=== PATIENT | male | born 1985 | race Caucasian/White ===

== ENCOUNTER → 2020-06-23 08:52 | Outpatient (BNVA) | payer OTHER, SELFPAY | PROVIDERS: Family Provider Family Medicine; Visit Provider Psychiatry & Neurology Psychiatry | DX: Z03.89 Encounter for observation for other suspected diseases and conditions ruled out (principal); Z79.899 Other long term (current) drug therapy; F33.1 Major depressive disorder, recurrent, moderate | CPT/HCPCS: 80048; 80061; 83036; 84443; 85025 ==

== ENCOUNTER 2020-11-15 06:39 | Emergency (ER) | payer SELFPAY ==
--- NOTE | 2020-11-15 06:40 | ED_ITS ---
HPI - Back Pain/Injury General: Chief Complaint: Back Pain/Injury Stated Complaint: neck and back pain, left shoulder pain Time Seen by Provider: 11/15/20 06:40 History of Present Illness: HPI Narrative: 35-year-old male presents to the emergency room with complaints of neck pain. Is been ongoing for several weeks. He has tried multiple different things including [id number] medications previous prescriptions and patient care assistant. He has developed significant left arm radiculopathy cervical nerve dermatomes. He gives a near exact description of the C6-7 nerve root impingement on history, by description of the areas affected with pain. He has had multiple episodes of this in the past which she is treated with prednisone and anti-inflammatories and muscle relaxers they have all resolved since he has had a period of time where he is not had any problems. This seemed to be exacerbated by recent heavy labor at home. He has had back problems in the past as well with right leg radiculopathy that resolved after he was treated recently with a short course of steroids. MD elicited complaint: back pain Onset (ago): week(s) Timing: constant Severity: severe Similar Symptoms Previously: Yes Location: lumbar spine Exacerbating factors: sitting upright, walking and lifting Relieving factors: none Associated symptoms: Deny abdominal pain, arthralgias, chills, change in bowel habits, difficulty walking, dysuria, fatigue, fecal incontinence, fever(s), hematuria, myalgias, nausea, numbness, syncope, tingling/numbness/burning, urinary frequency, urinary urgency, vomiting or weakness Treatments prior to arrival: NSAIDS, acetaminophen, prescription analgesics and other medications Review of Systems Const: Denies: fever(s), chills or fatigue ENMT: Denies: throat pain, ear or mastoid pain, nasal discharge or nasal congestion Card: Denies: syncope Resp: Denies: dyspnea, productive cough or non-productive cough GI: Denies: abdominal pain, nausea, vomiting, fecal incontinence or change in bowel habits : Denies: dysuria, urinary urgency or hematuria Skin/Breast: Denies: rash or pruritus Neuro: Denies: difficulty walking PFSH ED PFSH: Medical History TOD (generalized anxiety disorder) MDD (major depressive disorder) Social History Current gender identity: Male Physical Exam Const: COMMON NORMALS: no acute distress GENERAL APPEARANCE: cooperative and comfortable ORIENTATION/CONSCIOUSNESS: Yes awake, Yes oriented to person, Yes oriented to place and Yes oriented to time HENMT: COMMON NORMALS: normocephalic, atraumatic, hearing grossly normal bilaterally and external ears normal HEAD & SCALP: normocephalic and atraumatic EXTERNAL EAR: Yes external ears normal Neck/C-Spine: COMMON NORMALS: no JVD Resp: COMMON NORMALS: normal respiratory effort, No retractions, No use of accessory muscles and clear to auscultation bilaterally AUSCULTATION: clear to auscultation bilaterally Cardio: COMMON NORMALS: no JVD, regular rate, regular rhythm and No murmurs present (Cardio) RATE: regular rate RHYTHM: regular rhythm Extremity: COMMON NORMALS: normal to inspection, capillary refill normal, no clubbing, cyanosis or edema, no calf tenderness and no pedal edema Neuro: SENSORIUM/ORIENTATION: Yes oriented to person, Yes oriented to place and Yes oriented to time DEEP TENDON REFLEXES: Right patellar reflex intens ity grade: 0 and Left patellar reflex intensity grade: 2+ OTHER: Dorsum plantar flexion in the right foot is 5 of 5 has total loss of patellar tendon reflex on the right side. No evidence of sensation alteration at this time Patient has C6-7 radiculopathy. Diminished sensation in the outer portion of the left arm as well as on the thumb index and middle finger in the left hand. Brachial radialis triceps and biceps tendon reflexes difficult to elicit. Skin: COMMON NORMALS: no rashes or lesions noted GENERAL SKIN EXAM: no rashes or lesions noted Course Vital Signs: Vital signs: Vital Signs Temperature 97.7 F 11/15/20 07:05 Pulse Rate 62 11/15/20 07:52 Respiratory Rate 18 11/15/20 07:52 Blood Pressure 135/110 11/15/20 07:52 Pulse Oximetry 98 11/15/20 07:52 MDM - Back Pain/Injury MDM Narrative: Medical decision making narrative: Based on exam believe patient has an L4 nerve root irritation which seems to be stable at this time and he has very little pain from it. His cervical radiculopathy is much more impressive with a very clear dermatomal pattern suggestive of C6-7. Patient is having a difficult time functioning at this time and is having to keep his left arm above his head for the pain to be tolerable to sit in the exam room. Unfortunately he does not have insurance. Discussed with him at some point he will likely need an MRI and evaluation by neurosurgery or a spine surgeon. He does not have insurance at this time and is going to pursue that at a later date we will treat him medically at this point for significant worsening return Discharge Plan Discharge Patient Disposition: Home Clinical Impression: Lumbar radiculopathy, Cervical radiculopathy at C6, Cervical radiculopathy at C7 Condition: Stable Prescriptions: New pregabalin 75 mg capsule 75 mg PO BID Qty: 60 RF: 2 tizanidine 4 mg capsule 4 mg PO Q6H PRN (Reason: muscle spasticity) Qty: 60 RF: 1 diclofenac sodium 75 mg tablet,delayed release (DR/EC) 75 mg PO Q12H PRN (Reason: pain) Qty: 60 RF: 1 hydrocodone-acetaminophen 7.5-325 mg tablet 1 tab PO Q4H PRN (Reason: pain) Qty: 30 RF: 0 prednisone 20 mg tablet 20 mg PO BID 7 Days Qty: 15 RF: 0 No Action bupropion HCl 150 mg tablet extended release 24 hr 150 mg PO QAM 30 Days Qty: 30 RF: 3 escitalopram oxalate 20 mg tablet 20 mg PO DAILY 30 Days Qty: 30 RF: 3 Discharge Orders: Discharge ED (Routine); Ordered 11/15/20 Ordered By: Jeffrey Golden Referrals: Jeffrey Golden, DO [Emergency Provider] - Discharge Diet: Usual diet Discharge Activity: Increase activity as tolerated Patient Instructions: Opioid Safety Coding Level of Care Code ED Charge Preparation Technician for Chg Fwd Exam Comprehensive
[2020-11-15 07:05] VITALS: BP 141/102; PULSE 84; RESP 17; TEMP 36.5; O2SAT 97; BMI 27.8
[2020-11-15 07:27] VITALS: RESP 18
[2020-11-15] MEDS: morphine 4 mg/mL SDV 1 mL 6 MG IM (07:27)
[2020-11-15] MEDS: dexamethasone 10 mg/mL INJ IM (07:27)
[2020-11-15] MEDS: ketorolac 30 mg/mL INJ 60 MG IM (07:30)
[2020-11-15] MEDS: orphenadrine 30 mg/mL Inj 2 mL 60 MG IM (07:30)
[2020-11-15 07:52] VITALS: BP 135/110; PULSE 62; RESP 18; O2SAT 98
== END 2020-11-15 07:53 | disposition home or self-care (01) ==
LOC: ER 06:46
PROVIDERS: Emergency Provider Family Medicine
DX: M54.16 Radiculopathy, lumbar region (principal); M54.12 Radiculopathy, cervical region
CPT/HCPCS: 96372; 99283; J1100; J1885; J2270; J2360

== ENCOUNTER 2020-12-24 13:08 | Emergency (ER) | payer SELFPAY ==
[2020-12-24 13:14] VITALS: BP 119/82; PULSE 56; RESP 18; TEMP 36.8; O2SAT 99; BMI 27.8
--- NOTE | 2020-12-24 13:31 | XRR_ITS ---
PROCEDURE INFORMATION: Exam: XR Chest Exam date and time: 12/24/2020 1:31 PM Age: 35 years old Clinical indication: Cough and dyspnea; Additional info: Dyspnea/cough TECHNIQUE: Imaging protocol: XR of the chest. Views: 1 view. COMPARISON: No relevant prior studies available. FINDINGS: Lungs: Unremarkable. No consolidation. Pleural spaces: Unremarkable. No pleural effusion. No pneumothorax. Heart/Mediastinum: Unremarkable. No cardiomegaly. Bones/joints: Unremarkable. XR/XR chest 1V portable [id number] IMPRESSION: Negative for infiltrate
--- NOTE | 2020-12-24 14:36 | CTR_ITS ---
PROCEDURE INFORMATION: Exam: CTA Chest With Contrast Exam date and time: 12/24/2020 2:36 PM Age: 35 years old Clinical indication: Shortness of breath; Patient HX: SOB; Additional info: Shortness of breath w chest pain TECHNIQUE: Imaging protocol: Computed tomographic angiography of the chest with contrast. 3D rendering (Not supervised by radiologist): MIP and/or 3D reconstructed images were created by the technologist. Radiation optimization: All CT scans at this facility use at least one of these dose optimization techniques: automated exposure control; mA and/or kV adjustment per patient size (includes targeted exams where dose is matched to clinical indication); or iterative reconstruction. Contrast material: OMNI 350; Contrast volume: 95 ml; Contrast route: INTRAVENOUS (IV); COMPARISON: CR (CHEST, ) 12/24/2020 3:13 PM RADIATION DOSE METRICS: Total DLP (mGy-cm): 623.91 FINDINGS: Pulmonary arteries: Normal. No pulmonary emboli. Aorta: Unremarkable. No aortic aneurysm. No aortic dissection. Lungs: Unremarkable. No consolidation. No masses. Pleural spaces: Unremarkable. No pneumothorax. No pleural effusion. Heart: Unremarkable. No cardiomegaly. No pericardial effusion. Lymph nodes: Unremarkable. No enlarged lymph nodes. Bones/joints: Unremarkable. No acute fracture. Soft tissues: Unremarkable. CT/CT angio chest PE protcl [id number] IMPRESSION: Negative for pulmonary embolus or airspace infiltrate Radiation Dose CTDIVOL = (mGy): DLP = 623.91 (mGy-cm)
--- NOTE | 2020-12-24 14:37 | W.ED.WEAKNES ---
HPI - Weakness General: Chief complaint: Weakness Stated complaint: Animal Bite Last Week/Aching & Fatigue Time Seen by Provider: 12/24/20 13:18 History of Present Illness: HPI Narrative: 35-year-old male presents emergency room with complaints of aching and fatigue and excessive shortness of breath particularly the last 3 days. He rescued a baby raccoon 7 days ago and was bitten multiple times on the hands no sign of infection at any of the bite sites they are keeping the raccoon as a potential pad and still have it it is healthy and doing well in cage since the time he was bitten. In addition to that he has noticed the last 3 days whenever he exerts himself activity that he usually tolerates well causes excessive fatigue chest pain and shortness of breath resolves when he rests. He has no personal or family history of early heart disease. 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 Has not noticed any swelling or pain in his legs. He has had a little bit of a cough but no anosmia. MD Complaint: generalized weakness Onset (ago): day(s) (3) Duration: intermittent Location: generalized Migration: none Severity: moderate Quality: sharp Relieving factors: none Exacerbating factors: none Associated symptoms: Reports myalgias and short of breath; Denies chest pain, chills, confusion, melena, decreased appetite, diaphoresis, dysuria, easy bruising, fever(s), headache(s), nausea, rash, syncope or vomiting Review of Systems Const: Denies: fever(s), chills or diaphoresis ENMT: Denies: throat pain, ear or mastoid pain, nasal discharge or nasal congestion Card: Denies: chest pain or syncope Resp: Denies: dyspnea, productive cough or non-productive cough GI: Denies: nausea, vomiting or melena : Denies: dysuria Skin/Breast: Denies: rash or pruritus Neuro: Denies: headache(s) or confusion Tristan/Lymph: Denies: easy bruising PFS ED PFSH: Medical History TOD (generalized anxiety disorder) MDD (major depressive disorder) Social History Current gender identity: Male Physical Exam Const: COMMON NORMALS: no acute distress GENERAL APPEARANCE: cooperative and comfortable ORIENTATION/CONSCIOUSNESS: Yes awake, Yes oriented to person, Yes oriented to place and Yes oriented to time HENMT: COMMON NORMALS: normocephalic, atraumatic and hearing grossly normal bilaterally HEAD & SCALP: normocephalic and atraumatic Neck/C-Spine: COMMON NORMALS: no JVD Resp: COMMON NORMALS: normal respiratory effort, No retractions, No use of accessory muscles and clear to auscultation bilaterally AUSCULTATION: clear to auscultation bilaterally Cardio: COMMON NORMALS: no JVD, regular rate, regular rhythm and No murmurs present (Cardio) RATE: regular rate RHYTHM: regular rhythm GI: COMMON NORMALS: Soft to palpation and No hepatosplenomegaly present AUSCULTATION: Yes normoactive bowel sounds PALPATION: Yes Soft to palpation, No Tenderness to palpation present (GI), No Guarding due to palpation present (GI) and Yes No hepatosplenomegaly present Extremity: COMMON NORMALS: normal to inspection, capillary refill normal, no clubbing, cyanosis or edema, no calf tenderness and no pedal edema Neuro: SENSORIUM/ORIENTATION: Yes oriented to person, Yes oriented to place and Yes oriented to time Skin: COMMON NORMALS: no rashes or lesions noted GENERAL SKIN EXAM: no rashes or lesions noted Course Vital Signs: Vital signs: Vital Signs Temperature 98.1 F 12/24/20 17:30 Pulse Rate 56 L 12/24/20 13:14 Respiratory Rate 14 12/24/20 17:30 Blood Pressure 118/73 12/24/20 17:30 Pulse Oximetry 99 12/24/20 13:14 MDM - Weakness MDM Narrative: Medical decision making narrative: Patient still has the raccoon and quarantine we discussed options are going to continue to watch if there is no evidence of abnormal behavior in the next 3 days he would need to do any shots. We do have outstanding PCR. His CTA for PE was negative. We will go ahead and discharge him home recommend he remain in self quarantine until then reviewed his other labs and imaging with him Lab Data: Labs: Lab Results 12/24/20 12/24/20 12/24/20 Range/Units 15:56 15:56 15:56 WBC 5.9 (4.0-10.0) 10^3/ uL RBC 4.87 (4.1-5.3) 10^6/u L Hgb 15.5 (11.7-16.6) g/dL Hct 47.0 (42.0-52.0) % MCV 96.5 H (80-94) fL MCH 31.8 (28.0-34.0) pg MCHC 33.0 (30.0-36.0) g/dL RDW 13.4 (12.1-15.1) % Plt Count 225 (130-400) 10^3/c mm MPV 9.8 (7.4-10.4) fL Neut % (Auto) 53.8 % Lymph % (Auto) 32.9 % [place] % (Auto) 10.7 % Eos % (Auto) 1.4 % Baso % (Auto) 0.5 % Neut # (Auto) 3.18 (1.8-7.7) 10^3/u L Lymph # (Auto) 1.9 (0.8-4.8) 10^3/u L [place] # (Auto) 0.6 (0.2-0.9) 10^3/u L Eos # (Auto) 0.1 (0.0-0.8) 10^3/u L Baso # (Auto) 0.0 (0.0-0.1) 10^3/u L Nucleated RBC % (a uto) 0 % Nucleated RBCs # 0.0 /100WBC Sodium 140 (136-145) mmol/L Potassium 4.1 (3.5-5.1) mmol/L Chloride 104 (98-107) mmol/L Carbon Dioxide 28 (22-29) mmol/L Anion Gap 12.1 (5-19) BUN 11 (6-20) mg/dL Creatinine 1.2 (0.7-1.2) mg/dL GFR Calculation 68.1 L (90-130) mL/min Glucose 73 (65-115) mg/dL Calculated Osmolal ity 288 (285-295) mOsm/k g Lactic Acid 1.9 (0.5-2.2) mmol/L Calcium 8.9 (8.5-10.5) mg/dL Total Bilirubin 0.6 (0.15-1.2) mg/dL AST 15 (0-40) U/L ALT 17 (0-41) U/L Alkaline Phosphata se 77 (40-130) IU/L Creatine Kinase 72 (39-308) U/L Total Protein 6.1 L (6.6-8.7) g/dL Albumin 4.1 (3.5-5.2) g/dL Globulin 2.0 (1.3-4.6) g/dL Urine Color (Yellow) Urine Appearance (CLEAR) Urine pH (5-7) Ur Specific Gravit y (1.005-1.030) Urine Protein (Negative) Urine Glucose (UA) (Normal) Urine Ketones (Negative) Urine Blood (Negative) Urine Nitrate (Negative) Urine Bilirubin (Negative) Urine Urobilinogen (Negative) mg/dL Ur Leukocyte Portia ase (Negative) SARS-CoV-2 Ag (Rap id) (Negative) 12/24/20 12/24/20 Range/Units 15:56 16:00 WBC (4.0-10.0) 10^3/ uL RBC (4.1-5.3) 10^6/u L Hgb (11.7-16.6) g/dL Hct (42.0-52.0) % MCV (80-94) fL MCH (28.0-34.0) pg MCHC (30.0-36.0) g/dL RDW (12.1-15.1) % Plt Count (130-400) 10^3/c mm MPV (7.4-10.4) fL Neut % (Auto) % Lymph % (Auto) % [place] % (Auto) % Eos % (Auto) % Baso % (Auto) % Neut # (Auto) (1.8-7.7) 10^3/u L Lymph # (Auto) (0.8-4.8) 10^3/u L [place] # (Auto) (0.2-0.9) 10^3/u L Eos # (Auto) (0.0-0.8) 10^3/u L Baso # (Auto) (0.0-0.1) 10^3/u L Nucleated RBC % (a uto) % Nucleated RBCs # /100WBC Sodium (136-145) mmol/L Potassium (3.5-5.1) mmol/L Chloride (98-107) mmol/L Carbon Dioxide (22-29) mmol/L Anion Gap (5-19) BUN (6-20) mg/dL Creatinine (0.7-1.2) mg/dL GFR Calculation (90-130) mL/min Glucose (65-115) mg/dL Calculated Osmolal ity (285-295) mOsm/k g Lactic Acid (0.5-2.2) mmol/L Calcium (8.5-10.5) mg/dL Total Bilirubin (0.15-1.2) mg/dL AST (0-40) U/L ALT (0-41) U/L Alkaline Phosphata se (40-130) IU/L Creatine Kinase (39-308) U/L Total Protein (6.6-8.7) g/dL Albumin (3.5-5.2) g/dL Globulin (1.3-4.6) g/dL Urine Color Yellow (Yellow) Urine Appearance Clear (CLEAR) Urine pH 5 (5-7) Ur Specific Gravit y 1.020 (1.005-1.030) Urine Protein Neg (Negative) Urine Glucose (UA) Norm (Normal) Urine Ketones Negative (Negative) Urine Blood Neg (Negative) Urine Nitrate Negative (Negative) Urine Bilirubin Neg (Negative) Urine Urobilinogen 1 H (Negative) mg/dL Ur Leukocyte Portia ase Negative (Negative) SARS-CoV-2 Ag (Rap id) Negative (Negative) Discharge Plan Discharge Patient Disposition: Home Clinical Impression: Animal bite of hand, GARCIA (dyspnea on exertion) Condition: Stable Prescriptions: No Action bupropion HCl 150 mg tablet extended release 24 hr 150 mg PO QAM 30 Days Qty: 30 RF: 3 escitalopram oxalate 20 mg tablet 20 mg PO DAILY 30 Days Qty: 30 RF: 3 pregabalin 75 mg capsule 75 mg PO BID Qty: 60 RF: 2 tizanidine 4 mg capsule 4 mg PO Q6H PRN (Reason: muscle spasticity) Qty: 60 RF: 1 diclofenac sodium 75 mg tablet,delayed release (DR/EC) 75 mg PO Q12H PRN (Reason: pain) Qty: 60 RF: 1 hydrocodone-acetaminophen 7.5-325 mg tablet 1 tab PO Q4H PRN (Reason: pain) Qty: 30 RF: 0 Discharge Orders: Discharge ED (Routine); Ordered 12/24/20 Ordered By: Jeffrey Golden Discharge Diet: Usual diet Discharge Activity: Increase activity as tolerated Patient Instructions: Opioid Safety Activity Restrictions/Additional Instructions: Recommend you in self quarantine until final Covid results have returned. If having worsening or change symptoms return to the emergency room. Coding Level of Care Code ED Problem Manager for Ron Fwmeredith Exam Comprehensive
[2020-12-24] MEDS: iohexol 350 mg/mL 100 mL Btl IV (16:16)
[2020-12-24 16:17] LABS: Basophils % 0.5 %; Eosinophils # 0.1 10^3/uL (0.0-0.8); Eosinophils % 1.4 %; Hemoglobin 15.5 g/dL (11.7-16.6); Lymphocytes # 1.9 10^3/uL (0.8-4.8); Lymphocytes % 32.9 %; Mean Corpuscular Hemoglobin 31.8 pg (28.0-34.0); Mean Corpuscular Volume 96.5 fL (80-94); Mean Platelet Volume 9.8 fL (7.4-10.4); Monocytes # 0.6 10^3/uL (0.2-0.9); Monocytes % 10.7 %; Neutrophils # 3.18 10^3/uL (1.8-7.7); Neutrophils % 53.8 %; Nucleated Red Blood Cells % 0 %; Platelet Count 225 10^3/cmm (130-400); Red Blood Count 4.87 10^6/uL (4.1-5.3); Red Cell Distribution Width 13.4 % (12.1-15.1); White Blood Count 5.9 10^3/uL (4.0-10.0)
[2020-12-24 16:32] LABS: Alanine Aminotransferase 17 U/L (0-41); Albumin Level 4.1 g/dL (3.5-5.2); Alkaline Phosphatase 77 IU/L (40-130); Anion Gap 12.1 (5-19); Aspartate Amino Transferase 15 U/L (0-40); Blood Urea Nitrogen 11 mg/dL (6-20); Calcium 8.9 mg/dL (8.5-10.5); Carbon Dioxide 28 mmol/L (22-29); Chloride 104 mmol/L (98-107); Creatine Phosphokinase 72 U/L (39-308); Glomerular Filtration Rate 68.1 mL/min (90-130); Glucose 73 mg/dL (65-115); Lactic Sepsis W/Reflex 1.9 mmol/L (0.5-2.2); Osmolality Calculated 288 mOsm/kg (285-295); Potassium 4.1 mmol/L (3.5-5.1); Sodium 140 mmol/L (136-145); Total Bilirubin 0.6 mg/dL (0.15-1.2); Total Protein 6.1 g/dL (6.6-8.7)
[2020-12-24 17:09] LABS: SARS Covid-2 Antigen Negative (Negative)
[2020-12-24 17:19] LABS: Add Urine Microscopic? NO; Charge for UA Resulting for Rev
[2020-12-24 17:22] LABS: Urine Appearance Clear (CLEAR); Urine Color Yellow (Yellow); pH Urine 5 (5-7)
[2020-12-24 17:23] LABS: Bilirubin Urine Neg (Negative); Blood Urine Neg (Negative); Glucose Urine UA Norm (Normal); Ketones Urine Negative (Negative); Leukocyte Esterase Urine Negative (Negative); Nitrate Urine Negative (Negative); Protein Urine Neg (Negative); Urobilinogen Urine 1 mg/dL (Negative)
[2020-12-24 17:30] VITALS: BP 118/73; RESP 14; TEMP 36.7
[2020-12-24 17:36] VITALS: BP 118/73; RESP 14; TEMP 36.7
== END 2020-12-24 17:30 | disposition home or self-care (01) ==
PROVIDERS: Emergency Provider Family Medicine
DX: R06.00 Dyspnea, unspecified (principal); S61.459A Open bite of unspecified hand, initial encounter; W55.51XA Bitten by raccoon, initial encounter; Z20.822 Contact with and (suspected) exposure to COVID-19
CPT/HCPCS: 71045; 71275; 80053; 81003; 82550; 83605; 85025; 87040; 87426; 99283; Q9967

== ENCOUNTER 2021-11-08 10:08 | Emergency (ER) | payer SELFPAY ==
[2021-11-08 10:28] VITALS: BP 134/84; PULSE 54; RESP 12; TEMP 36.7; O2SAT 98; BMI 26.4
[2021-11-08] MEDS: ketorolac 60 mg/2 mL INJ IM (12:05)
[2021-11-08] MEDS: dexamethasone 10 mg/mL INJ IM (12:05)
[2021-11-08] MEDS: orphenadrine 30 mg/mL Inj 2 mL 60 MG IM (12:05)
[2021-11-08] MEDS: morphine 4 mg/mL SDV 1 mL IM (12:05)
--- NOTE | 2021-11-08 13:33 | ED_ITS ---
HPI - Neck Pain/Injury General: Chief Complaint: Neck Pain/Injury Stated Complaint: Neck pain Time Seen by Provider: 11/08/21 10:08 Source: patient Mode of arrival: ambulatory History of Present Illness: 36-year-old male presents emergency room with neck pain radiating into the thumb and index finger of his left arm. He has had worsening neck pain last week or 2. He has had problems in the past that is waxed and waned through the years he states quite a bit worse now that it has been before to the point he has difficult time with any neck movement particularly flexion or extension increasing the pain into his arm. No recent injury. No previous surgeries. No identifiable precipitating cause or injury. MD complaint: neck pain Onset (ago): minute(s) Radiation: left upper extremity Severity: moderate Quality: sharp Duration: constant Relieving factors: none Exacerbating factors: movement of neck Associated symptoms: Reports tingling and weakness; Denies dysphagia, difficulty walking, dizziness, fevers/chills, headache(s), nausea or swollen glands Treatments prior to arrival: acetaminophen and ibuprofen Review of Systems Const: Denies: fever(s), chills, body aches, change in appetite, fatigue or malaise ENMT: Denies: throat pain, ear or mastoid pain, nasal discharge or nasal congestion Card: Denies: chest pain, palpitations, irregular heart rhythm, edema, swelling of feet/ankles, dyspnea on exertion or orthopnea Resp: Denies: dyspnea, productive cough or non-productive cough GI: Denies: abdominal pain, nausea, vomiting or dysphagia : Denies: flank pain, difficulty urinating, dysuria, urinary frequency or urinary urgency Musc: Reports: neck pain Skin/Breast: Denies: rash or pruritus Neuro: Denies: headache(s), difficulty walking or dizziness PFSH ED PFSH: Medical History TOD (generalized anxiety disorder) MDD (major depressive disorder) Social History Current gender identity: Male Physical Exam Const: COMMON NORMALS: no acute distress GENERAL APPEARANCE: cooperative and comfortable ORIENTATION/CONSCIOUSNESS: Yes awake, Yes oriented to person, Yes oriented to place and Yes oriented to time HENMT: COMMON NORMALS: normocephalic, atraumatic and hearing grossly normal bilaterally HEAD & SCALP: normocephalic and atraumatic Neck/C-Spine: OTHER: Reproducible pain radiating into the left arm with flexion and extension at the neck. Resp: COMMON NORMALS: normal respiratory effort, No retractions, No use of accessory muscles and clear to auscultation bilaterally AUSCULTATION: clear to auscultation bilaterally Cardio: COMMON NORMALS: regular rate, regular rhythm and No murmurs present (Cardio) RATE: regular rate RHYTHM: regular rhythm GI: COMMON NORMALS: Soft to palpation and No hepatosplenomegaly present AUSCULTATION: Yes normoactive bowel sounds PALPATION: Yes Soft to palpation, No Tenderness to palpation present (GI), No Guarding due to palpation present (GI) and Yes No hepatosplenomegaly present Extremity: COMMON NORMALS: normal to inspection, capillary refill normal, no clubbing, cyanosis or edema, no calf tenderness and no pedal edema Neuro: SENSORIUM/ORIENTATION: Yes oriented to person, Yes oriented to place and Yes oriented to time Skin: COMMON NORMALS: no rashes or lesions noted GENERAL SKIN EXAM: no rashes or lesions noted Course Vital Signs: Vital signs: Vital Signs Temperature 98.1 F 11/08/21 10:28 Pulse Rate 54 L 11/08/21 10:28 Respiratory Rate 12 11/08/21 10:28 Blood Pressure 134/84 11/08/21 10:28 Pulse Oximetry 98 11/08/21 10:28 MDM - Neck Pain/Injury Medical Decision Making No trauma or precipitating event imaging not likely to be helpful in the acute setting. Patient does need an MRI. Likely C6 and C7 nerve impingement. Patient discharged home with prednisone hydrocodone diclofenac and tizanidine we will set him up for outpatient MRI cervical spine. Medical Records I reviewed the patient's medical records. Lab Data I reviewed the patient's lab results. Discharge Plan Discharge Patient Disposition: Home Clinical Impression: Cervical radiculopathy Condition: Stable Prescriptions: New hydrocodone-acetaminophen 5-325 mg tablet 1 tab PO Q6H PRN (Reason: pain) Qty: 25 0RF prednisone 20 mg tablet 20 mg PO TID Qty: 15 0RF Rx Instructions: 1 p.o. 3 times daily x3 days, 1 p.o. twice daily x2 days, 1 p.o. daily x2 days diclofenac sodium 75 mg tablet,delayed release (DR/EC) 75 mg PO Q12H PRN (Reason: pain) Qty: 20 0RF tizanidine 4 mg capsule 4 mg PO Q6H PRN (Reason: muscle spasticity) Qty: 30 0RF Rx Instructions: do not exceed 3 doses per 24 hrs No Action Tylenol Ex Str Rapid Release 500 mg Tablet 1,000 - 1,500 mg PO Q4H PRN (Reason: Pain) 0RF ibuprofen 200 mg Tablet 400 - 600 mg PO Q4H PRN (Reason: Pain) 0RF Discharge Orders: Discharge ED (Routine); Ordered 11/08/21 Ordered By: Jeffrey Golden Discharge Diet: Usual diet Discharge Activity: Limit activity as instructed Patient Instructions: Opioid Safety Activity Restrictions/Additional Instructions: Avoid heavy lifting working above level shoulders are below the level of the waist. Do not drive when taking sedating medications such as hydrocodone. tax compliance manager will make arrangements for her to have a cervical MRI. Coding Level of Care Code ED Detention Deputy for Ron Aldrich
--- NOTE | 2021-11-10 17:18 | DCPLANNER ---
vice president & general manager [employer] had message to schedule an outpatient MRI for patient. vice president & general manager [employer] called patient at phone number [phone], a recording stated that patient is not accepting phone calls at this time. vice president & general manager [employer] was unable to speak with patient to confirm that patient wanted to have the MRI ordered and who patient sees for primary care.
== END 2021-11-08 12:18 | disposition home or self-care (01) ==
PROVIDERS: Emergency Provider Family Medicine
DX: M54.12 Radiculopathy, cervical region (principal)
CPT/HCPCS: 96372; 99284; J1100; J1885; J2270; J2360

== ENCOUNTER → 2022-07-18 09:05 | Outpatient (BNVA) | payer SELFPAY | PROVIDERS: Visit Provider Podiatrist Foot & Ankle Surgery | DX: B35.1 Tinea unguium (principal) | CPT/HCPCS: 36415; 80053 ==

== ENCOUNTER → 2024-02-27 16:54 | Outpatient (BNVA) | payer SELFPAY | PROVIDERS: Visit Provider Podiatrist Foot & Ankle Surgery | DX: L60.3 Nail dystrophy (principal) | CPT/HCPCS: 80053 ==